=== PATIENT | male | born 1940 | race African-American/Black ===

== ENCOUNTER → 2019-08-26 | Outpatient (CLI) | payer MEDICARE, OTHER ==
[~2019-08-26] MED LIST: LOSARTAN POTASS25 MG PO
== END ==
LOC: RAD 12:33
PROVIDERS: ATTEND Emergency Medicine
DX: M79.605 Pain in left leg (principal); Z86.718 Personal history of other venous thrombosis and embolism
CPT/HCPCS: 93971

== ENCOUNTER → 2021-08-25 | Outpatient (CLI) | payer MEDICARE, OTHER | LOC: CT 13:32 | PROVIDERS: ATTEND Emergency Medicine | DX: R51.9 Headache, unspecified (principal) | CPT/HCPCS: 70450; 70486 ==

== ENCOUNTER → 2023-02-05 | Outpatient (CLI) | payer MEDICARE | LOC: MRI 08:46 | PROVIDERS: ATTEND Emergency Medicine | DX: M54.12 Radiculopathy, cervical region (principal) | CPT/HCPCS: 72141 ==